=== PATIENT | female | born 1940 | race Caucasian/White ===

== ENCOUNTER 2017-05-24 09:34 | Inpatient (IN) | payer MEDICARE ==
[2017-05-24 10:05] LABS: Basophils % (Auto) 0.2 % (0.0-1.8); Eosinophils % (Auto) 0.2 % (0.0-4.3); Hematocrit 32.5 % (30.3-42.9); Hemoglobin 10.3 gm/dl (10.1-14.3); Mean Corpuscular HGB Conc 32 % (30-34); Mean Corpuscular Volume 79 fl (79-97); Platelet Count 268 K/mm3 (140-440); Red Blood Count 4.14 M/mm3 (3.65-5.03); White Blood Count 14.7 K/mm3 (4.5-11.0)
[2017-05-24 10:21] LABS: Mean Corpuscular Hemoglobin 25 pg (28-32)
[2017-05-24 10:31] LABS: Alanine Aminotransferase 19 units/L (7-56); Albumin 3.1 g/dL (3.9-5); Albumin/Globulin Ratio 0.8 %; Alkaline Phosphatase 97 units/L (35-129); Anion Gap 14 mmol/L; BUN/Creatinine Ratio 13.33; Blood Urea Nitrogen 8 mg/dL (7-17); Calcium 8.6 mg/dL (8.4-10.2); Carbon Dioxide 31 mmol/L (22-30); Chloride 93.9 mmol/L (98-107); Glucose 144 mg/dL (65-100); Lipase 32 units/L (13-60); Potassium 4.1 mmol/L (3.6-5.0); Sodium 135 mmol/L (137-145); Total Protein 6.8 g/dL (6.3-8.2)
[2017-05-24] MEDS ORDERED: NACL ONE (10:42)
[2017-05-24] MEDS ORDERED: NACL 0.9% 1000 ML 1,000 ML IV ONE (11:19)
[2017-05-24] MEDS ORDERED: ZOSYN/NS 4.5GM/100ML 4.5 GM/100 ML VIAL IV ONE (11:31)
--- NOTE | 2017-05-24 11:33 | Emergency Department Report ---
ED Abdominal Pain HPI - General Chief Complaint: Abdominal Pain Stated Complaint: ABD PAIN/DIZZINESS/FEVER/DIARRHEA Time Seen by Provider: 05/24/17 10:10 Source: patient, family Mode of arrival: Ambulatory Limitations: Language Barrier - History of Present Illness Initial Comments: 76-year-old female with a past medical history of asthma, hypertension and no previous abdominal surgeries presents to the hospital complaining of abdominal pain 1 week. Pain is primarily right lower quadrant that is intermittent. Unable to characterize pain. Pain rated 8/10 in intensity. Worse with palpation. Daughter who is a physician and is translating since the patient does not speak Ghanaian. Daughter states that patient is very stoic. Positive nausea without reports of vomiting. Decreased by mouth intake times one week. Patient has frequent loose stools. Temperature 100.8 at the physician's office prior to arrival. No recent travel or sick contacts. Patient was sent by PMD Dr. Rocio diallo - Related Data Home Medications Medication Instructions Recorded Confirmed Last Taken Cyanocobalamin [Vitamin B-12] 1,000 mcg PO DAILY 05/24/17 05/24/17 05/23/17 Fluticasone/Salmeterol [Advair 1 puff IH BID 05/24/17 05/24/17 05/23/17 Diskus 500-50 mcg] Losartan 100 mg PO DAILY 05/24/17 05/24/17 05/23/17 Montelukast [Singulair] 10 mg PO QPM 05/24/17 05/24/17 05/23/17 Allergies Allergy/AdvReac Type Severity Reaction Status Date / Time No Known Allergies Allergy Unverified 05/24/17 09:40 ED Review of Systems ROS: Stated complaint: ABD PAIN/DIZZINESS/FEVER/DIARRHEA Other details as noted in HPI Comment: All other systems reviewed and negative Other: Constitutional: as per hpi Eyes: No eye pain visual changes or discharge ENT: No ear pain or throat pain Neck: Denies pain Respiratory: Denies cough wheezing shortness of breath Cardiovascular: Denies chest pain, palpitations, syncope GI: As per HPI : Denies dysuria Musculoskeletal: Denies back pain Skin: Denies rash, lesions, erythema Neurologic: Denies headache, numbness, weakness Psychiatric: Denies suicidal ideation, hallucinations ED Past Medical Hx - Past Medical History Previous Medical History?: Yes Hx Hypertension: Yes Hx Asthma: Yes - Surgical History Past Surgical History?: Yes Additional Surgical History: catatracts - Social History Smoking Status: Never Smoker Substance Use Type: None - Medications Home Medications: Home Medications Medication Instructions Recorded Confirmed Last Taken Type Cyanocobalamin [Vitamin B-12] 1,000 mcg PO DAILY 05/24/17 05/24/17 05/23/17 History Fluticasone/Salmeterol [Advair 1 puff IH BID 05/24/17 05/24/17 05/23/17 History Diskus 500-50 mcg] Losartan 100 mg PO DAILY 05/24/17 05/24/17 05/23/17 History Montelukast [Singulair] 10 mg PO QPM 05/24/17 05/24/17 05/23/17 History ED Physical Exam - General Limitations: Language Barrier - Other Other exam information: General: No limitations, patient is alert in no acute distress Head exam: Atraumatic, normocephalic Eyes exam: Normal appearance ENT: Moist mucous membrane, normal oropharynx Neck exam: Normal inspection, full range of motion, no meningismus nontender Respiratory exam: Clear to auscultation bilateral, no wheezes, rales, crackles Cardiovascular: Normal rate and rhythm, normal heart sounds Abdomen: Abdomen is firm, distended, mild tenderness to the right mid lower abdomen. No rebound or guarding. Extremity: Full range of motion normal inspection no deformity Back: Normal Inspection, full range of motion, no tenderness Neurologic: Alert, oriented x3, cranial nerves intact, no motor or sensory deficit Psychiatric: normal affect, normal mood Skin: Warm, dry, intact ED Course Vital Signs 05/24/17 05/24/17 09:40 10:12 Temperature 99.4 F Pulse Rate 103 H Respiratory 24 16 Rate Blood Pressure 165/87 O2 Sat by Pulse 96 97 Oximetry - Reevaluation(s) Reevaluation #1: 05/24/17 11:41 1 L normal saline and Zosyn ordered - Consultations Consultation #1: 05/24/17 11:47 Dr Conroy consulted, will evaluate, requests IR consult Consultation #2: 05/24/17 11:51 Case D/w Dr Alan IR, will consult ED Medical Decision Making - Lab Data Result diagrams: 05/24/17 09:50 05/24/17 09:50 Lab Results 05/24/17 05/24/17 Range/Units 09:50 09:50 WBC 14.7 H (4.5-11.0) K/mm3 RBC 4.14 (3.65-5.03) M/mm3 Hgb 10.3 (10.1-14.3) gm/dl Hct 32.5 (30.3-42.9) % MCV 79 (79-97) fl MCH 25 L (28-32) pg MCHC 32 (30-34) % RDW 17.0 H (13.2-15.2) % Plt Count 268 (140-440) K/mm3 Lymph % (Auto) 7.7 L (13.4-35.0) % [place] % (Auto) 14.5 H (0.0-7.3) % Eos % (Auto) 0.2 (0.0-4.3) % Baso % (Auto) 0.2 (0.0-1.8) % Lymph # 1.1 L (1.2-5.4) K/mm3 [place] # 2.1 H (0.0-0.8) K/mm3 Eos # 0.0 (0.0-0.4) K/mm3 Baso # 0.0 (0.0-0.1) K/mm3 Seg Neutrophils % 77.4 H (40.0-70.0) % Seg Neutrophils # 11.4 H (1.8-7.7) K/mm3 Sodium 135 L (137-145) mmol/L Potassium 4.1 (3.6-5.0) mmol/L Chloride 93.9 L (98-107) mmol/L Carbon Dioxide 31 H (22-30) mmol/L Anion Gap 14 mmol/L BUN 8 (7-17) mg/dL Creatinine 0.6 L (0.7-1.2) mg/dL Estimated GFR > 60 ml/min BUN/Creatinine Ratio 13.33 % Glucose 144 H (65-100) mg/dL Calcium 8.6 (8.4-10.2) mg/dL Total Bilirubin 0.60 (0.1-1.2) mg/dL AST 17 (5-40) units/L ALT 19 (7-56) units/L Alkaline Phosphatase 97 (35-129) units/L Total Protein 6.8 (6.3-8.2) g/dL Albumin 3.1 L (3.9-5) g/dL Albumin/Globulin Ratio 0.8 % Lipase 32 (13-60) units/L - Radiology Data Radiology results: report reviewed CT abdomen and pelvis IV contrast: Mid to lower abdominal abscess from a possible occult bowel perforation. 7.5 x 7.8 cm in size. - Medical Decision Making UA pending at disposition. Patient requires admission to the hospital for IV antibiotics and surgical drainage of abscess. Surgery and interventional radiologist having consulted - Differential Diagnosis diverticulitis, appendicitis, gastroenteritis Critical Care Time: No Critical care attestation.: If time is entered above; I have spent that time in minutes in the direct care of this critically ill patient, excluding procedure time. ED Disposition Clinical Impression: Intra-abdominal abscess, HTN (hypertension), Asthma Disposition: OP ADMIT IP TO THIS HOSP Is pt being admited?: Yes Condition: Stable Time of Disposition: 11:59 (Dr Frazier/hosp)
--- NOTE | 2017-05-24 11:36 | Cat Scan Report ---
CT ABDOMEN AND PELVIS WITH CONTRAST INDICATION: Right abdominal pain, fever, nausea, vomiting. COMPARISON: None similar. FINDINGS: Abdomen and pelvis CT performed following intravenous administration of 100 cc of Omnipaque 300. LUNG BASES: Mild cardiomegaly. Right coronary calcifications. Nonspecific distal esophageal wall prominence/thickening, not excluded for gastroesophageal reflux and/or hiatal hernia, amongst others. ABDOMEN: Lower abdominal mesenteric stranding and few small surrounding likely reactive lymph nodes measuring up to 6 mm noted about a mid to lower abdominal abscess containing fluid and air and measuring 7.5 x 7.8 cm as on axial image 191, series 2 and approximately 6 m craniocaudal. It slightly displaces few bowel loops in this region that appear to drape over it. No significant free intraperitoneal air. Approximately 1.2 cm peripheral splenic hypodensity superiorly, axial image 70, series 2 and few other smaller subcentimeter, inadequately characterized. Liver, gallbladder, pancreas, adrenals, nonaneurysmal abdominal aorta with few atherosclerotic calcifications, IVC and kidneys within normal limits. No hydronephrosis or significant ascites. Nonopacified GI tract evaluation limited, though grossly nonobstructive. Small fat containing umbilical hernia with a transverse neck of 0.8 cm. PELVIS: Urinary bladder, uterus, adnexa/ovaries and rectosigmoid within normal limits. No free fluid or significant adenopathy. Multilevel imaged spinal degenerative changes, including spurring and multilevel lumbar disc degeneration/vacuum phenomena. Lower lumbar facet arthropathy as well. CONCLUSION: 1. Mid to lower abdominal abscess from a possible occult bowel perforation, as detailed above. 2. Few other incidental findings, as above. I phoned the above results to Dr. Justice in the ER, 11:20 AM, 05/24/2017. Thank you for the opportunity to participate in this patient's care.
--- NOTE | 2017-05-24 11:51 | Admit Criteria Form ---
Admission Criteria Documentation: ABDOMINAL PAIN Clinical Indications for Admission to Inpatient Care (Place 'X' for any and all applicable criteria): Admission is indicated for ANY ONE of the following(1)(2)(3)(4)(5): [X ]I. Inpatient admission required rather than observation care (Also use Abdominal Pain: Observation Care, as appropriate) because of ANY ONE of the following: [ ]a) Severe pain requiring acute inpatient management [ X]b) Identification of etiology/finding that requires inpatient care (eg, aortic dissection, free air) [ ]c) Absent bowel sounds with complete ileus(6) [ ]d) Suspected toxic megacolon [ ]e) Severe electrolyte abnormalities requiring inpatient care [ ]f) High fever or infection requiring inpatient admission as indicated by ANY ONE of following(7)(8): [ ] i) Appropriate outpatient or observational care antimicrobial treatment unavailable, not effective, or not feasible [ ] ii) Documented bacteremia [ ] iii) Temperature > 104.9 degrees F (oral) [ ] iv) T >103.1 F (oral) or < 96.8 F(rectal) that does not respond to all emergency treatment measures [ ]g) Signs of intestinal obstruction [B] [ ]h) Hemodynamic instability [ ]i) IV fluid to replace significant ongoing losses (greater than 3 L/m2 per day) (12)(13) [ ]j) Percutaneous or open drainage (eg, abscess, biliary tract ) procedures [ ]k) Parenteral nutrition regimen that must be implemented on inpatient basis [ ]l) Other condition,treatment or monitoring requiring inpatient admission. [ ]II. Peritoneal signs present [ ]III. Surgery needed that cannot be performed on an ambulatory basis. [ ]IV. Evaluation requires patient to not eat or drink for extended period ( eg, more than 24 hours). [ ]V. Contraindications and/or Inappropriate clinical situations for Observational Care in patients with abdominal pain, when ANY ONE of the following is required: [ ]a) Thorough evaluation is required to prevent catastrophic events due to delays in diagnosing (e.g.Mesenteric ischemia) 1,3 [ ]b) Patient with severe pathology or with chronic symptoms unlikely to improve in the ED stay (3) [X ]. General contraindications and/or Inappropriate clinical situations for Observational Care in patients with abdominal pain, when ANY ONE of the following is required: [X ]a) Prediction of prolongation of LOS based on ANY ONE of the following may be considered as a contraindication for observational care 2, 3, 4, 5, 6, 7, 8, 9, 10, 11 [X ]i) Age > 65 yrs. [ ]ii) Patient arriving by ambulance [ ]iii) Patient with high acuity [ ]iv) Patient requiring vital sign monitoring [ ]v) Patient on IV medication [ ]b) Systolic blood pressures 180mmHg 3,12 [ ]c) Patient with altered mental status including delirium and other alteration of consciousness, (3) [ ]d) Patient whose discharge disposition will be to a fpc home or rehabilitation home should not be managed in Emergency Department Observation Unit. CMS rule requires 3 days hospital stay before such placement.3,13 [ ]e) Patient with failure to thrive due to broad array of etiologies 3,16,17 [ ]f) Inability to ambulate 3,14 Extended stay beyond goal length of stay may be needed for(2)(3): [ ]a) Persistent abdominal pain with suspected intra-abdominal process [ ]b) Diagnosed condition requiring continued stay (e.g., pancreatitis, complicated diverticulitis) [ ]c) Surgery (e.g., colectomy) The original [facility] content created by [employer] has been revised. The portions of the content which have been revised are identified through the use of italic text or in bold, and [facility] has neither reviewed nor approved the modified material.All other unmodified content is copyright [facility]. Please see references footnoted in the original [facility] edition 2016 Admission Criteria Met: Yes
--- NOTE | 2017-05-24 12:19 | Consultation ---
History of Present Illness - Reason for Consult Consult date: 05/24/17 - History of Present Illness This is a 76 year old female presenting with six days of abdominal pain. She states that initially she began to experience central abdominal and RLQ pain. Eventually she developed fevers and chills. She had lack of appetite and runny stools during this time as well. Aside from cataracts there is no surgical history. She has asthma and hypertension. Medications and Allergies Allergies Allergy/AdvReac Type Severity Reaction Status Date / Time No Known Allergies Allergy Unverified 05/24/17 09:40 Home Medications Medication Instructions Recorded Confirmed Last Taken Type Cyanocobalamin [Vitamin B-12] 1,000 mcg PO DAILY 05/24/17 05/24/17 05/23/17 History Fluticasone/Salmeterol [Advair 1 puff IH BID 05/24/17 05/24/17 05/23/17 History Diskus 500-50 mcg] Losartan 100 mg PO DAILY 05/24/17 05/24/17 05/23/17 History Montelukast [Singulair] 10 mg PO QPM 05/24/17 05/24/17 05/23/17 History Active Meds: Active Medications Sodium Chloride (Nacl 0.9% 1000 Ml) 1,000 mls @ 999 mls/hr IV BOLUS ONE Stop: 05/24/17 12:19 Last Admin: 05/24/17 11:22 Dose: 999 mls/hr Exam - Constitutional Vitals: Temp Pulse Resp BP Pulse Ox 99.4 F 103 H 16 165/87 97 05/24/17 09:40 05/24/17 09:40 05/24/17 10:12 05/24/17 09:40 05/24/17 10:12 General appearance: Present: no acute distress, mild distress - EENT Eyes: Present: PERRL ENT: hearing intact - Respiratory Respiratory effort: normal - Abdominal General gastrointestinal: Present: tender, non-distended Localized gastrointestinal: tender: RLQ, epigastric periumbilical Results - Labs CBC & Chem 7: 05/24/17 09:50 05/24/17 09:50 Labs: Abnormal lab results 05/24/17 05/24/17 Range/Units 09:50 09:50 WBC 14.7 H (4.5-11.0) K/mm3 MCH 25 L (28-32) pg RDW 17.0 H (13.2-15.2) % Lymph % (Auto) 7.7 L (13.4-35.0) % [place] % (Auto) 14.5 H (0.0-7.3) % Lymph # 1.1 L (1.2-5.4) K/mm3 [place] # 2.1 H (0.0-0.8) K/mm3 Seg Neutrophils % 77.4 H (40.0-70.0) % Seg Neutrophils # 11.4 H (1.8-7.7) K/mm3 Sodium 135 L (137-145) mmol/L Chloride 93.9 L (98-107) mmol/L Carbon Dioxide 31 H (22-30) mmol/L Creatinine 0.6 L (0.7-1.2) mg/dL Glucose 144 H (65-100) mg/dL Albumin 3.1 L (3.9-5) g/dL Assessment and Plan CT reveals a large intraperitoneal abscess. The etiology is unclear. This may represent a perforated appendix or a jejunal diverticulum, amongst other possible etiologies. Review of the imaging reveals that the abscess is surrounded on all sides by bowel and there is no safe percutaneous window for drainange. I have discussed this all with the patient and her family. I would recommend a surgical evaluation for both evacuation of the abscess and finding the etiology. I spoke to Dr. Conroy who said he would evaluate the patient.
--- NOTE | 2017-05-24 12:44 | Event Note ---
Date: 05/24/17 After further discussion with surgical colleagues and the patient, I will attempt percutaneous drainage. I will first image her in different positions in CT. If I am unable to find a safe window, she will likely have to undergo surgical exploration.
--- NOTE | 2017-05-24 13:26 | History and Physical Report ---
History of Present Illness Chief complaint: My stomach hurts History of present illness: 76 YO Female with HTN, Asthma, Obesity presents to ED for evaluation. Pt states that she has been experiencing abdominal pain for the past week with worsening symptoms over the past 1 day. Pain is 8/10, intermittent, localized to the right lower quadrant Pain is worse with palpation, relieved with rest. Daughter who is a physician and is translating since the patient does not speak Setswana. Pt seen and evaluated in ED and found to have intraabdominal abscess of unclear etiology, contained perforation versus malignancy. IR consulted and surgery consulted in ED for evaluation. Past History Past Medical History: hypertension, other (asthma, obesity, ) Past Surgical History: cataract removal Social history: , lives with family. denies: smoking, alcohol abuse, prescription drug abuse, IV drug use Family history: hypertension Medications and Allergies Allergies Allergy/AdvReac Type Severity Reaction Status Date / Time No Known Allergies Allergy Unverified 05/24/17 09:40 Home Medications Medication Instructions Recorded Confirmed Last Taken Type Cyanocobalamin [Vitamin B-12] 1,000 mcg PO DAILY 05/24/17 05/24/17 05/23/17 History Fluticasone/Salmeterol [Advair 1 puff IH BID 05/24/17 05/24/17 05/23/17 History Diskus 500-50 mcg] Losartan 100 mg PO DAILY 05/24/17 05/24/17 05/23/17 History Montelukast [Singulair] 10 mg PO QPM 05/24/17 05/24/17 05/23/17 History Review of Systems All systems: negative Constitutional: no weight loss, no fever, no chills Ears, nose, mouth and throat: no ear pain Breasts: no swelling Cardiovascular: no chest pain Respiratory: no cough Gastrointestinal: abdominal pain, nausea Genitourinary Female: no flank pain Menstruation: no ammenorrhea Rectal: no pain Musculoskeletal: no neck stiffness Integumentary: no rash Neurological: no head injury Psychiatric: no anxiety Endocrine: no cold intolerance Hematologic/Lymphatic: no easy bruising, no easy bleeding Allergic/Immunologic: no urticaria Exam - Constitutional Vitals: Temp Pulse Resp BP Pulse Ox 99.4 F 95 H 22 143/70 95 05/24/17 09:40 05/24/17 13:16 05/24/17 13:16 05/24/17 13:16 05/24/17 13:16 General appearance: Present: mild distress - EENT Eyes: Present: PERRL ENT: hearing intact, clear oral mucosa - Neck Neck: Present: supple, normal ROM - Respiratory Respiratory effort: normal Respiratory: bilateral: CTA - Cardiovascular Heart Sounds: Present: S1 & S2. Absent: rub, click - Extremities Extremities: pulses symmetrical, No edema Peripheral Pulses: within normal limits - Abdominal General gastrointestinal: Present: soft, tender, non-distended, normal bowel sounds. Absent: hepatomegaly, splenomegaly, mass, hernia Female genitourinary: Present: normal - Integumentary Integumentary: Present: clear, warm, dry - Musculoskeletal Musculoskeletal: gait normal, strength equal bilaterally - Psychiatric Psychiatric: appropriate mood/affect, intact judgment & insight - Neurologic Neurologic: CNII-XII intact, moves all extremities Results - Labs CBC & Chem 7: 05/24/17 09:50 05/24/17 09:50 Labs: Abnormal lab results 05/24/17 05/24/17 Range/Units 09:50 09:50 WBC 14.7 H (4.5-11.0) K/mm3 MCH 25 L (28-32) pg RDW 17.0 H (13.2-15.2) % Lymph % (Auto) 7.7 L (13.4-35.0) % [place] % (Auto) 14.5 H (0.0-7.3) % Lymph # 1.1 L (1.2-5.4) K/mm3 [place] # 2.1 H (0.0-0.8) K/mm3 Seg Neutrophils % 77.4 H (40.0-70.0) % Seg Neutrophils # 11.4 H (1.8-7.7) K/mm3 Sodium 135 L (137-145) mmol/L Chloride 93.9 L (98-107) mmol/L Carbon Dioxide 31 H (22-30) mmol/L Creatinine 0.6 L (0.7-1.2) mg/dL Glucose 144 H (65-100) mg/dL Albumin 3.1 L (3.9-5) g/dL Assessment and Plan - Patient Problems (1) Intra-abdominal abscess Current Visit: Yes Status: Acute Plan to address problem: IV abx, IVF, surgery consulted, IR consulted, serial abdominal exam, supportive care. (2) Obesity (BMI 35.0-39.9 without comorbidity) Current Visit: Yes Status: Acute Plan to address problem: balanced diet, increased physical activity (3) Asthma Current Visit: Yes Status: Acute Qualifiers: Asthma severity: mild intermittent Asthma complication type: uncomplicated Qualified Code(s): J45.20 - Mild intermittent asthma, uncomplicated Plan to address problem: supportive care, nebulizer therapy, NIPPV as clinically indicated. (4) HTN (hypertension) Current Visit: Yes Status: Acute Qualifiers: Hypertension type: H Plan to address problem: monitor bp q shift, (5) DVT prophylaxis Current Visit: Yes Status: Acute
[2017-05-24] MEDS ORDERED: DULCOLAX PR PRN (13:42)
[2017-05-24] MEDS ORDERED: TYLENOL PO PRN (13:42)
[2017-05-24] MEDS ORDERED: DUONEB *Not for PRN Use IH (13:42)
[2017-05-24] MEDS ORDERED: ZOFRAN IV PRN (13:42)
[2017-05-24] MEDS ORDERED: MILK OF MAGNESIA PO PRN (13:42)
[2017-05-24] MEDS ORDERED: VERSED IV ONE ×3 (13:53→15:00)
[2017-05-24] MEDS ORDERED: SUBLIMAZE IV ONE (13:53)
[2017-05-24] MEDS ORDERED: SUBLIMAZE ONE (13:56)
[2017-05-24] MEDS ORDERED: NACL 0.9% 1000 ML 1,000 ML ONE (15:07)
--- NOTE | 2017-05-24 15:23 | Operative Report ---
Operative Report Operative Report: Procedure: CT guided placement of an intra-abdominal abscess drainage catheter Date of Procedure: 05/24/2017 History/Indication: 76-year-old female with 6 days of abdominal pain, fevers, nausea and vomiting. She came to the ER today, and CT revealed a large 7-8 cm intra-abdominal abscess. Physician: Malina Wilkerson MD Technique/Procedural Details: Informed consent was obtained. The patient was placed in the supine position on the procedure table. A marking grid was placed, and an appropriate location was marked after a test manager image. The patient was prepped and draped in the usual sterile fashion. A timeout was performed. Local and deep subcutaneous anesthesia was administered. Under sequential CT guidance, an 18-gauge trocar needle was placed into an intra-abdominal collection. Fluid was aspirated and sent for Gram stain and culture. A J-wire was advanced into the collection. Confirmation of placement was performed with another CT image. The trocar needle was exchanged for a 6 and 8 Georgian tissue dilator. A 10 Georgian all purpose drainage catheter was advanced into the collection. The locking loop was formed. Appropriate placement was confirmed by CT. Two 2-0 silk sutures were used to secure the catheter to the skin. An additional 40-50 mL of fluid was aspirated. Sterile dressings were placed, and the drain was connected to a Uracil drainage bag. The patient tolerated the procedure well, without immediate complication. Discussion: Abdominal CT reveals a large intraperitoneal fluid collection measuring 7-8 cm in diameter, with an air fluid level. There is successful placement of a 10 Georgian all-purpose drainage catheter, with the locking lid position within the center of the collection. Approximately 50 mL of foul-smelling purulent/ feculent fluid was promptly aspirated. Specimen: Abscess fluid EBL: <5 cc
[2017-05-24] MEDS: MORPHINE IV PRN (16:42)
[2017-05-24] MEDS ORDERED: DUONEB *Not for PRN Use IH ONE (16:51)
[2017-05-24] MEDS ORDERED: DUONEB *Not for PRN Use IH SCH (17:00)
[2017-05-24] MEDS ORDERED: PROVENTIL IH PRN (17:11)
[2017-05-24] MEDS ORDERED: ATIVAN IV ONE (17:15)
[2017-05-24 17:19] LABS: ISTAT Base Excess 5; ISTAT HCO3 30.4; ISTAT PCO2 56.8 (35-45); ISTAT PH 7.335 (7.35-7.45); ISTAT PO2 66 (80-105); ISTAT SO2 91; ISTAT TCO2 32
[2017-05-24] MEDS: SINGULAIR PO SCH (17:45)
[2017-05-24] MEDS: ZOSYN/NS 4.5GM/100ML 4.5 GM/100 ML VIAL IV SCH (18:09)
[2017-05-24] MEDS: D5/0.45NS 1,000 ML IV SCH (18:17)
--- NOTE | 2017-05-24 18:29 | Consultation ---
History of Present Illness - Reason for Consult Consult date: 05/24/17 Intra-Abdominal Abscess Requesting physician: SAGE TITUS - History of Present Illness Ms. Mendez is a 76-year-old woman who presented with 1 week of lower abdominal pain, worsening over this period. CT imaging of the abdomen/ pelvis showed a RLQ abscess with reactive lymphadenopathy. She was taken to the OR and underwent abscess drainage with several mLs of purulent fluid drained. She is now in the ICU and beginning empiric antibiotics. ID consultation is requested for further treatment recommendations. Past History Past Medical History: hypertension, other (asthma, obesity, ) Past Surgical History: cataract removal Social history: , lives with family. denies: smoking, alcohol abuse, prescription drug abuse, IV drug use Family history: hypertension Medications and Allergies Allergies Allergy/AdvReac Type Severity Reaction Status Date / Time No Known Allergies Allergy Unverified 05/24/17 09:40 Home Medications Medication Instructions Recorded Confirmed Last Taken Type Cyanocobalamin [Vitamin B-12] 1,000 mcg PO DAILY 05/24/17 05/24/17 05/23/17 History Fluticasone/Salmeterol [Advair 1 puff IH BID 05/24/17 05/24/17 05/23/17 History Diskus 500-50 mcg] Losartan 100 mg PO DAILY 05/24/17 05/24/17 05/23/17 History Montelukast [Singulair] 10 mg PO QPM 05/24/17 05/24/17 05/23/17 History Active Meds: Active Medications Acetaminophen (Tylenol) 650 mg PO Q4H PRN PRN Reason: Pain MILD(1-3)/Fever >100.5/SESAY Albuterol (Proventil) 2.5 mg IH Q4HRT PRN PRN Reason: Shortness Of Breath Arformoterol Tartrate (Brovana Nebu) 15 mcg IH Q12HRT J LUIS Bisacodyl (Dulcolax) 10 mg MO QDAY PRN PRN Reason: Constipation unrelieved by MOM Budesonide (Pulmicort) 1 mg IH Q12HRT J LUIS Cyanocobalamin (Vitamin B-12) 1,000 mcg PO DAILY J LUIS Dextrose/Sodium Chloride (D5/0.45ns) 1,000 mls @ 75 mls/hr IV DIRECT J LUIS Last Admin: 05/24/17 18:17 Dose: 75 mls/hr Metronidazole (Flagyl 500 Mg/100 Ml) 500 mg in 100 mls @ 100 mls/hr IV Q8HR [facility] Piperacillin Sod/Tazobactam Sod (Zosyn/Ns 4.5gm/100ml) 4.5 gm in 100 mls @ 200 mls/hr IV Q8HR J LUIS PRN Reason: Protocol Last Admin: 05/24/17 18:09 Dose: 200 mls/hr Losartan Potassium (Cozaar) 100 mg PO DAILY [facility] Magnesium Hydroxide (Milk Of Magnesia) 30 ml PO Q4H PRN PRN Reason: Constipation Methylprednisolone Sodium Succinate (Solu-Medrol) 60 mg IV Q8H [facility] Last Admin: 05/24/17 17:45 Dose: 60 mg Montelukast Sodium (Singulair) 10 mg PO QPM [facility] Last Admin: 05/24/17 17:45 Dose: 10 mg Morphine Sulfate (Morphine) 2 mg IV Q4H PRN PRN Reason: Pain, Moderate (4-6) Last Admin: 05/24/17 16:42 Dose: 2 mg Ondansetron HCl (Zofran) 4 mg IV Q8H PRN PRN Reason: N/V unrelieved by Reglan Review of Systems ROS unobtainable: due to mental status Physical Examination - Constitutional Vitals: Vital Signs Temp Pulse Resp BP Pulse Ox 99.4 F 108 H 28 H 157/63 96 05/24/17 09:40 05/24/17 17:06 05/24/17 17:06 05/24/17 15:24 05/24/17 17:21 General appearance: Present: well-nourished, other (acutely ill-appearing; niece at bedside) - EENT Eyes: Absent: scleral icterus - Respiratory Respiratory effort: other (venti mask) Respiratory: bilateral: CTA - Cardiovascular Rhythm: regular Heart Sounds: Present: S1 & S2 - Extremities Extremities: No edema - Abdominal General gastrointestinal: Present: soft, non-distended, other (percutaneous drain with foul-smelling, purulent drainage) - Integumentary Integumentary: Present: clear. Absent: jaundice - Neurologic Neurologic: moves all extremities Results - Labs CBC & Chem 7: 05/24/17 09:50 05/24/17 09:50 Labs: Abnormal lab results 05/24/17 Range/Units 17:08 POC ABG pH 7.335 L (7.35-7.45) POC ABG pCO2 56.8 H (35-45) POC ABG pO2 66 L (80-105) - Imaging and Cardiology CT scan - abdomen: report reviewed CT scan - pelvis: report reviewed Assessment and Plan - Patient Problems (1) Intra-abdominal abscess Current Visit: Yes Status: Acute Plan to address problem: 1. Adding agents for broadest coverage, including empiric antifungal coverage. 2. Await results of abscess drainage cultures. 3. Serial abdominal imaging is anticipated. Will follow output of drain.
[2017-05-24] MEDS ORDERED: VANCOMYCIN/NS 1 GM/250 ML 1 GM/250 ML BAG IV SCH (19:00)
[2017-05-24] MEDS ORDERED: VANCOMYCIN 1,500 MG in NACL 0.9% 500 ML 500 ML IV ONE (19:00)
[2017-05-24] MEDS: FLAGYL 500 MG/100 ML 500 MG/100 ML BAG IV SCH ×3 (19:58→22:00)
[2017-05-24] MEDS: PULMICORT IH SCH (20:07)
[2017-05-24] MEDS: BROVANA NEBU IH SCH (20:08)
[2017-05-24] MEDS ORDERED: NON-FORMULARY (Fluticasone/Salmeterol [Advair Diskus 500-50 Mcg] 1 PUFF) IH SCH (22:00)
[2017-05-25] MEDS: MORPHINE IV PRN ×2 (00:46→14:35)
[2017-05-25] MEDS: FLAGYL 500 MG/100 ML 500 MG/100 ML BAG IV SCH ×2 (01:05→05:00)
[2017-05-25] MEDS: ZOSYN/NS 4.5GM/100ML 4.5 GM/100 ML VIAL IV SCH ×4 (02:25→22:40)
[2017-05-25] MEDS: DIFLUCAN 200 ML IV SCH ×2 (03:08→22:41)
--- NOTE | 2017-05-25 04:51 | Consultation ---
HISTORY OF PRESENT ILLNESS: This patient was seen in the Emergency Room. She is a 76-year-old [place] lady. She came because of pain in the mid upper abdomen, nausea, but no vomiting. The patient was evaluated by our ER physician and a CT scan showed evidence of fairly good sized collection at the mid right upper abdomen, may be about 8-9 cm, with air fluid level in it. Her temperature was 99.4, her blood pressure was 143. The white count was 14.7, the sodium was 155, and albumin is 3.1. PHYSICAL EXAMINATION: GENERAL: At this point showed a well preserved morbidly obese [place] female. She is in no distress. She looked in pain to me. HEAD AND NECK: Negative. CHEST: Essentially clear. HEART: Sound normal. ABDOMEN: Protuberant, severe tenderness all through, and particularly in the mid epigastric area. EXTREMITIES: Showed no evidence of any edema. IMPRESSION AND PLAN: Epigastric pain with evidence of mass seen on the CAT scan with fluid collection and air in it. This has been going on for about a week now. I believe this needs to be removed surgically. I had Dr. Wilkerson to see the patient and see if this could be done percutaneously. Apparently, it was done a while ago and he was able to do draw greenish-yellowish foul smelling fluid. Cultures were taken. The patient was thus admitted for further evaluation and observation. The patient is on Zosyn at the present time 4.5 gram every 8 hours. I do not think anything surgically needs to be done on her. I did indicate to her granddaughter that if this did not work, we may need to do exploratory laparotomy on her. Apparently, Dr. Wilkerson took care of that problem, so now she is on Zosyn and Flagyl. JOB# [id number] JONY/ERMELINDA
[2017-05-25] MEDS: BROVANA NEBU IH SCH ×2 (08:57→21:34)
[2017-05-25] MEDS: PULMICORT IH SCH ×2 (08:57→21:35)
[2017-05-25] MEDS ORDERED: NON-FORMULARY (Losartan 100 MG) PO SCH (10:00)
--- NOTE | 2017-05-25 10:51 | XRay Report ---
KUB: Postoperative followup for abscess. There is a percutaneous pigtail drain in the lower mid abdomen entering from the right side. There is a mild ileus pattern. There is a contrast filled distended urinary bladder. No free air and no other significant findings. Portable chest: Postoperative evaluation. There is a generally coarse overall interstitial pattern throughout both lungs. There are no infiltrates and no vascular congestion. Heart is probably normal in size for positioning. No comparison. Impression: Probable mild chronic interstitial changes. No acute finding suspected.
[2017-05-25 12:00] LABS: INR 1.31 (0.87-1.13)
[2017-05-25] MEDS: COZAAR PO SCH (12:25)
[2017-05-25] MEDS: VITAMIN B-12 PO SCH (12:27)
--- NOTE | 2017-05-25 13:00 | Progress Note ---
Assessment and Plan - Patient Problems (1) Intra-abdominal abscess Current Visit: Yes Status: Acute Plan to address problem: 1. Polymicrobial growth as anticipated. 2. Continue current empiric regimen. Await further clinical and culture data to determine long-term regimen. Subjective Date of service: 05/25/17 Principal diagnosis: Intra-Abdominal Abscess Interval history: Remains afebrile in ICU. New epigastric discomfort. No other events. Objective - Constitutional Vitals: Vital Signs Temp Pulse Resp BP Pulse Ox 97.8 F 84 20 118/64 99 05/25/17 09:59 05/25/17 09:59 05/25/17 09:59 05/25/17 09:59 05/25/17 08:54 Temperature -Last 24 Hours Temperature 97.8 F Temperature 98.7 F General appearance: Present: no acute distress, well-nourished, other (awake) - EENT Eyes: no scleral icterus, no conjunctival injection ENT: thrush - Respiratory Respiratory effort: normal Respiratory: bilateral: CTA, negative: rales - Cardiovascular Rhythm: regular Heart Sounds: Present: S1 & S2 Extremities: No edema - Gastrointestinal General gastrointestinal: Present: soft, distended, hypoactive bowel sounds, other (feculent output from percutaneous drain, no blood) - Integumentary Integumentary: no jaundice, no rash - Neurologic Neurologic: no focal deficits - Labs CBC & Chem 7: 05/24/17 09:50 05/24/17 09:50 Labs: Abnormal lab results 05/24/17 05/25/17 Range/Units 17:08 11:29 PT 17.0 H (12.2-14.9) Sec. INR 1.31 H (0.87-1.13) POC ABG pH 7.335 L (7.35-7.45) POC ABG pCO2 56.8 H (35-45) POC ABG pO2 66 L (80-105) Microbiology 05/25/17 15:00 Abdomen Surgical Culture - Preliminary - Imaging and cardiology Chest x-ray: report reviewed Abdominal x-ray: report reviewed (pigtail drain seen, no free air, mild ileus)
--- NOTE | 2017-05-25 13:44 | Progress Note ---
Assessment and Plan Assessment and plan: 76-year-old woman with past medical history of hypertension and asthma and obesity who presented complaining of abdominal pain to right lower quadrants Intra-abdominal abscess/sepsos sp CT guided placement of an intra-abdominal abscess drainage catheter on 05/24 Continue present antibiotics, ID input appreciated Obesity (BMI 35.0-39.9 without comorbidity) balanced diet, increased physical activity Mild intermittent Asthma Not currently in exacerbation, stable HTN (hypertension) Continue medications DVT prophylaxis Lovenox Case was discussed with the patient and her family. Case was discussed with infectious disease medical record consultant History Interval history: Abdominal pain is much improved, denies fevers, has been walking around her room. She was able to eat, she feels better. Hospitalist Physical - Physical exam Narrative exam: General: Patient appears well in no distress HEENT: MMM, EOMI cardiac: S1-S2 heard lungs: clear to auscultation, abdomen: soft, right lower quadrant tenderness, drain seen at the right lower quadrant., nondistended bowel sounds positive extremities: no edema clubbing or cyanosis Skin: no rash or lesion Neuro: no focal deficit Psych: appropriate behavior and mood, cognition intact - Constitutional Vitals: Temp Pulse Resp BP Pulse Ox 97.8 F 84 20 118/64 99 05/25/17 09:59 05/25/17 09:59 05/25/17 09:59 05/25/17 09:59 05/25/17 08:54 General appearance: Present: well-nourished, other (acutely ill-appearing; niece at bedside) Results - Labs CBC & Chem 7: 05/24/17 09:50 05/24/17 09:50 Labs: Laboratory Last Values WBC 14.7 K/mm3 (4.5-11.0) H 05/24/17 09:50 RBC 4.14 M/mm3 (3.65-5.03) 05/24/17 09:50 Hgb 10.3 gm/dl (10.1-14.3) 05/24/17 09:50 Hct 32.5 % (30.3-42.9) 05/24/17 09:50 MCV 79 fl (79-97) 05/24/17 09:50 MCH 25 pg (28-32) L 05/24/17 09:50 MCHC 32 % (30-34) 05/24/17 09:50 RDW 17.0 % (13.2-15.2) H 05/24/17 09:50 Plt Count 268 K/mm3 (140-440) 05/24/17 09:50 Lymph % (Auto) 7.7 % (13.4-35.0) L 05/24/17 09:50 [place] % (Auto) 14.5 % (0.0-7.3) H 05/24/17 09:50 Eos % (Auto) 0.2 % (0.0-4.3) 05/24/17 09:50 Baso % (Auto) 0.2 % (0.0-1.8) 05/24/17 09:50 Lymph # 1.1 K/mm3 (1.2-5.4) L 05/24/17 09:50 [place] # 2.1 K/mm3 (0.0-0.8) H 05/24/17 09:50 Eos # 0.0 K/mm3 (0.0-0.4) 05/24/17 09:50 Baso # 0.0 K/mm3 (0.0-0.1) 05/24/17 09:50 Seg Neutrophils % 77.4 % (40.0-70.0) H 05/24/17 09:50 Seg Neutrophils # 11.4 K/mm3 (1.8-7.7) H 05/24/17 09:50 PT 17.0 Sec. (12.2-14.9) H 05/25/17 11:29 INR 1.31 (0.87-1.13) H 05/25/17 11:29 POC ABG pH 7.335 (7.35-7.45) L 05/24/17 17:08 POC ABG pCO2 56.8 (35-45) H 05/24/17 17:08 POC ABG pO2 66 (80-105) L 05/24/17 17:08 POC ABG HCO3 30.4 05/24/17 17:08 POC ABG Total CO2 32 05/24/17 17:08 POC ABG O2 Sat 91 05/24/17 17:08 POC ABG Base Excess 5 05/24/17 17:08 FiO2 32 % 05/24/17 17:08 Sodium 135 mmol/L (137-145) L 05/24/17 09:50 Potassium 4.1 mmol/L (3.6-5.0) 05/24/17 09:50 Chloride 93.9 mmol/L (98-107) L 05/24/17 09:50 Carbon Dioxide 31 mmol/L (22-30) H 05/24/17 09:50 Anion Gap 14 mmol/L 05/24/17 09:50 BUN 8 mg/dL (7-17) 05/24/17 09:50 Creatinine 0.6 mg/dL (0.7-1.2) L 05/24/17 09:50 Estimated GFR > 60 ml/min 05/24/17 09:50 BUN/Creatinine Ratio 13.33 % 05/24/17 09:50 Glucose 144 mg/dL (65-100) H 05/24/17 09:50 Calcium 8.6 mg/dL (8.4-10.2) 05/24/17 09:50 Total Bilirubin 0.60 mg/dL (0.1-1.2) 05/24/17 09:50 AST 17 units/L (5-40) 05/24/17 09:50 ALT 19 units/L (7-56) 05/24/17 09:50 Alkaline Phosphatase 97 units/L (35-129) 05/24/17 09:50 Total Protein 6.8 g/dL (6.3-8.2) 05/24/17 09:50 Albumin 3.1 g/dL (3.9-5) L 05/24/17 09:50 Albumin/Globulin Ratio 0.8 % 05/24/17 09:50 Lipase 32 units/L (13-60) 05/24/17 09:50
--- NOTE | 2017-05-25 14:29 | Event Note ---
Date: 05/25/17 Abscess drain putting out 50-70cc of purulent output over last shift. Continue to monitor output. Awaiting surgical evaluation and termite helper Abx recommendations.
--- NOTE | 2017-05-25 15:44 | Progress Note ---
Subjective Narrative: Feels OK co epigastric pain , no nausea no vomiting , drainage minimal , biliary like , no legs pain . will ambulate .will need F/U CT ,KUB and CXray OK .will F/U Prn , Objective Vital Signs - 12hr 05/25/17 05/25/17 05/25/17 08:54 09:24 09:59 Temperature 97.8 F Pulse Rate [ 81 81 Anterior Bilateral Throughout] Pulse Rate [ 84 Brachial] Respiratory 20 Rate Respiratory 20 26 H Rate [Anterior Bilateral Throughout] Blood Pressure 118/64 [Left Arm] O2 Sat by Pulse 99 Oximetry - Labs 05/24/17 09:50 05/24/17 09:50
[2017-05-25] MEDS ORDERED: HEPARIN SUB-Q SCH (22:00)
[2017-05-25] MEDS ORDERED: LOVENOX SUB-Q SCH (22:00)
[2017-05-25] MEDS: LOVENOX SUB-Q SCH (22:38)
[2017-05-25] MEDS: VANCOMYCIN 1,250 MG in NACL 0.9% 250ML 250 ML IV SCH (22:40)
[2017-05-25] MEDS: D5/0.45NS 1,000 ML IV SCH (22:42)
[2017-05-26] MEDS: ZOSYN/NS 4.5GM/100ML 4.5 GM/100 ML VIAL IV SCH ×2 (05:02→19:41)
--- NOTE | 2017-05-26 08:49 | Progress Note ---
Assessment and Plan - Patient Problems (1) Intra-abdominal abscess Current Visit: Yes Status: Acute Plan to address problem: 1. Continue broad antimicrobials for now pending further micro data. 2. Recommend repeat abdominal imaging to determine if there is a new or worsened collection. Subjective Date of service: 05/26/17 Principal diagnosis: Intra-Abdominal Abscess Interval history: Remains afebrile, hemodynamically stable. Brief desaturation yesterday. Objective - Constitutional Vitals: Vital Signs Temp Pulse Resp BP Pulse Ox 97.7 F 106 H 20 120/65 98 05/25/17 21:30 05/25/17 22:00 05/25/17 21:39 05/25/17 21:30 05/25/17 23:00 Temperature -Last 24 Hours Temperature 97.7 F Temperature 97.8 F General appearance: Present: no acute distress, other (brother at bedside) - EENT Eyes: no scleral icterus - Respiratory Respiratory: bilateral: CTA, negative: rales, rhonchi - Cardiovascular Rhythm: regular Heart Sounds: Present: S1 & S2 Extremities: No edema - Gastrointestinal General gastrointestinal: Present: soft, tender, distended, other (percutaneous drain with malodorous, purulent discharge) Localized gastrointestinal: tender: epigastric periumbilical - Integumentary Integumentary: clear, no jaundice, no rash - Neurologic Neurologic: no focal deficits, moves all extremities - Psychiatric Psychiatric: appropriate mood/affect - Labs CBC & Chem 7: 05/27/17 07:22 05/24/17 09:50 Labs: Abnormal lab results 05/25/17 Range/Units 11:29 PT 17.0 H (12.2-14.9) Sec. INR 1.31 H (0.87-1.13) Microbiology 05/25/17 15:00 Abdomen Surgical Culture - Preliminary
[2017-05-26] MEDS: PULMICORT IH SCH ×2 (09:22→20:44)
[2017-05-26] MEDS: BROVANA NEBU IH SCH ×2 (09:22→20:44)
[2017-05-26] MEDS ORDERED: PROVENTIL IH PRN (09:28)
--- NOTE | 2017-05-26 11:13 | Progress Note ---
Assessment and Plan Assessment and plan: 76-year-old woman with past medical history of hypertension and asthma and obesity who presented complaining of abdominal pain to right lower quadrants Intra-abdominal abscess/sepsis/Rupture Appendicitis Perforated viscus sp CT guided placement of an intra-abdominal abscess drainage catheter on 05/24 Continue present antibiotics, ID input appreciated repeat CT today shows Near complete resolution of appendiceal abscess, status post appendiceal rupture but no signs of peritonitis or additional abscess formation. Splenic hypodensities are stable and a likely benign Keep NPO will discuss possible advancement of diet with IR tomorrow Obesity (BMI 35.0-39.9 without comorbidity) balanced diet, increased physical activity Mild intermittent Asthma Not currently in exacerbation, stable HTN (hypertension) Continue medications DVT prophylaxis Lovenox Case was discussed with the patient and her family. Case was discussed with infectious disease safety and health consultant History Interval history: Abdominal pain is much improved, denies fevers, has been walking around her room. she wants to eat, she feels better. Hospitalist Physical - Physical exam Narrative exam: General: Patient appears well in no distress HEENT: MMM, EOMI cardiac: S1-S2 heard lungs: clear to auscultation, abdomen: soft, right lower quadrant tenderness, drain seen at the right lower quadrant., nondistended bowel sounds positive extremities: no edema clubbing or cyanosis Skin: no rash or lesion Neuro: no focal deficit Psych: appropriate behavior and mood, cognition intact - Constitutional Vitals: Temp Pulse Resp BP Pulse Ox 97.6 F 60 20 123/69 100 05/26/17 09:21 05/26/17 09:35 05/26/17 09:35 05/26/17 09:21 05/26/17 09:35 General appearance: Present: no acute distress, well-nourished, other (awake) Results - Labs CBC & Chem 7: 05/24/17 09:50 05/24/17 09:50 Labs: Laboratory Last Values WBC 14.7 K/mm3 (4.5-11.0) H 05/24/17 09:50 RBC 4.14 M/mm3 (3.65-5.03) 05/24/17 09:50 Hgb 10.3 gm/dl (10.1-14.3) 05/24/17 09:50 Hct 32.5 % (30.3-42.9) 05/24/17 09:50 MCV 79 fl (79-97) 05/24/17 09:50 MCH 25 pg (28-32) L 05/24/17 09:50 MCHC 32 % (30-34) 05/24/17 09:50 RDW 17.0 % (13.2-15.2) H 05/24/17 09:50 Plt Count 268 K/mm3 (140-440) 05/24/17 09:50 Lymph % (Auto) 7.7 % (13.4-35.0) L 05/24/17 09:50 [place] % (Auto) 14.5 % (0.0-7.3) H 05/24/17 09:50 Eos % (Auto) 0.2 % (0.0-4.3) 05/24/17 09:50 Baso % (Auto) 0.2 % (0.0-1.8) 05/24/17 09:50 Lymph # 1.1 K/mm3 (1.2-5.4) L 05/24/17 09:50 [place] # 2.1 K/mm3 (0.0-0.8) H 05/24/17 09:50 Eos # 0.0 K/mm3 (0.0-0.4) 05/24/17 09:50 Baso # 0.0 K/mm3 (0.0-0.1) 05/24/17 09:50 Seg Neutrophils % 77.4 % (40.0-70.0) H 05/24/17 09:50 Seg Neutrophils # 11.4 K/mm3 (1.8-7.7) H 05/24/17 09:50 PT 17.0 Sec. (12.2-14.9) H 05/25/17 11:29 INR 1.31 (0.87-1.13) H 05/25/17 11:29 POC ABG pH 7.335 (7.35-7.45) L 05/24/17 17:08 POC ABG pCO2 56.8 (35-45) H 05/24/17 17:08 POC ABG pO2 66 (80-105) L 05/24/17 17:08 POC ABG HCO3 30.4 05/24/17 17:08 POC ABG Total CO2 32 05/24/17 17:08 POC ABG O2 Sat 91 05/24/17 17:08 POC ABG Base Excess 5 05/24/17 17:08 FiO2 32 % 05/24/17 17:08 Sodium 135 mmol/L (137-145) L 05/24/17 09:50 Potassium 4.1 mmol/L (3.6-5.0) 05/24/17 09:50 Chloride 93.9 mmol/L (98-107) L 05/24/17 09:50 Carbon Dioxide 31 mmol/L (22-30) H 05/24/17 09:50 Anion Gap 14 mmol/L 05/24/17 09:50 BUN 8 mg/dL (7-17) 05/24/17 09:50 Creatinine 0.6 mg/dL (0.7-1.2) L 05/24/17 09:50 Estimated GFR > 60 ml/min 05/24/17 09:50 BUN/Creatinine Ratio 13.33 % 05/24/17 09:50 Glucose 144 mg/dL (65-100) H 05/24/17 09:50 Calcium 8.6 mg/dL (8.4-10.2) 05/24/17 09:50 Total Bilirubin 0.60 mg/dL (0.1-1.2) 05/24/17 09:50 AST 17 units/L (5-40) 05/24/17 09:50 ALT 19 units/L (7-56) 05/24/17 09:50 Alkaline Phosphatase 97 units/L (35-129) 05/24/17 09:50 Total Protein 6.8 g/dL (6.3-8.2) 05/24/17 09:50 Albumin 3.1 g/dL (3.9-5) L 05/24/17 09:50 Albumin/Globulin Ratio 0.8 % 05/24/17 09:50 Lipase 32 units/L (13-60) 05/24/17 09:50 - Imaging and Cardiology CT scan - abdomen: image reviewed (Near complete resolution of appendiceal abscess, status post appendiceal rupture but no signs of peritonitis or additional abscess formation. Splenic hypodensities are stable and a likely benign )
[2017-05-26] MEDS: COZAAR PO SCH (11:59)
[2017-05-26] MEDS: VITAMIN B-12 PO SCH (11:59)
--- NOTE | 2017-05-26 12:20 | Progress Note ---
Subjective Narrative: Looks and feelsmuch better pain less nno joseph , no vomiting , sitting on a chair will leave the rest for I radiology . Objective Vital Signs - 12hr 05/26/17 05/26/17 05/26/17 09:20 09:21 09:23 Temperature 97.6 F Pulse Rate Pulse Rate [ 64 Anterior Bilateral Throughout] Pulse Rate [ 67 Brachial] Respiratory 20 Rate Respiratory 20 Rate [Anterior Bilateral Throughout] Blood Pressure Blood Pressure 123/69 [Left Arm] O2 Sat by Pulse 99 Oximetry 05/26/17 05/26/17 05/26/17 09:26 09:35 11:59 Temperature Pulse Rate 76 Pulse Rate [ 60 Anterior Bilateral Throughout] Pulse Rate [ Brachial] Respiratory Rate Respiratory 20 Rate [Anterior Bilateral Throughout] Blood Pressure 123/69 Blood Pressure [Left Arm] O2 Sat by Pulse 100 100 Oximetry - Labs 05/24/17 09:50 05/24/17 09:50
--- NOTE | 2017-05-26 13:22 | XRay Report ---
KUB: 05/26/17 12:59 CLINICAL: Abdominal pain. FINDINGS: The stomach is moderately distended with air. Normal small and large bowel gas. No pneumoperitoneum. A right pigtail drainage catheter. No mass or suspicious calcifications. The bones and soft tissues are normal. IMPRESSION: Gastric distention but otherwise normal.
--- NOTE | 2017-05-26 13:24 | XRay Report ---
CHEST TWO VIEWS: 05/26/17 CLINICAL: Chest pain. COMPARISON: 05/25/17 FINDINGS: Stable cardiomegaly. Normal pulmonary vessels. The lungs are normally expanded and clear.The bones and soft tissues are unremarkable. IMPRESSION: Cardiomegaly but no CHF. No change.
--- NOTE | 2017-05-26 13:43 | Cat Scan Report ---
CT ABDOMEN AND PELVIS WITH CONTRAST: 05/26/17 CLINICAL: Followup after abscess drainage. COMPARISON: 05/24/17 TECHNIQUE: Volumetric acquisition and 1.25 millimeter scan reconstructions after the uneventful intravenous injection of or cc Omnipaque 300. Consent was obtained prior to the administration of contrast. Oral contrast was not given. FINDINGS: Abdomen: The previously described lower abdominal midline collection of fluid has resolved after placement of a right-sided pigtail drainage catheter. A few collections of air along with some retained bowel contrast is identified at the drainage tube and what appears to be an abnormal appendix with the ill-defined wall. Mild inflammatory stranding remains at the site. Mild ascites. No pneumoperitoneum. The large and small bowel are normal. The kidneys are normal with nondilated renal collecting systems and ureters. The adrenal glands are normal. Normal liver, bile ducts and gallbladder. Normal stomach, duodenum and pancreas. Splenic hypodensities are unchanged compared to the prior exam. The spleen is normal size. . Pelvis: A normal small uterus. Normal left ovary. A right ovary is not identified. Normal urinary bladder and rectum. Sigmoid colon is normal. Normal rectum and sigmoid colon. Bone windows demonstrate degenerative changes in the spine and no suspicious bone lesion. IMPRESSION:1. Near-complete resolution of appendiceal abscess. 2. Status post appendiceal rupture but no signs of peritonitis or additional abscess formation. 3. Splenic hypodensities are stable and are likely benign.
[2017-05-26] MEDS: SINGULAIR PO SCH ×2 (18:00→19:39)
[2017-05-26] MEDS: VANCOMYCIN 1,250 MG in NACL 0.9% 250ML 250 ML IV SCH (22:03)
[2017-05-26] MEDS: D5/0.45NS 1,000 ML IV SCH (22:04)
[2017-05-26] MEDS: LOVENOX SUB-Q SCH (22:04)
[2017-05-27] MEDS: DIFLUCAN 200 ML IV SCH ×2 (00:13→21:17)
[2017-05-27] MEDS: ZOSYN/NS 4.5GM/100ML 4.5 GM/100 ML VIAL IV SCH ×4 (02:29→23:55)
[2017-05-27 08:06] LABS: Hematocrit 36.3 % (30.3-42.9); Hemoglobin 11.2 gm/dl (10.1-14.3); Mean Corpuscular HGB Conc 31 % (30-34); Mean Corpuscular Volume 80 fl (79-97); Platelet Count 327 K/mm3 (140-440); Red Blood Count 4.56 M/mm3 (3.65-5.03); Red Cell Distribution Width 17.9 % (13.2-15.2); White Blood Count 10.8 K/mm3 (4.5-11.0)
[2017-05-27 08:08] LABS: Mean Corpuscular Hemoglobin 25 pg (28-32)
[2017-05-27] MEDS: BROVANA NEBU IH SCH ×2 (08:10→21:27)
[2017-05-27] MEDS: PULMICORT IH SCH ×2 (08:10→21:27)
[2017-05-27 08:55] LABS: Basophils % (Manual) 0 % (0.0-1.8); Blastocytes % (Manual) 0 %; Eosinophils % (Manual) 0 % (0.0-4.3)
[2017-05-27 08:56] LABS: Anisocytosis 1+; Diff Status Complete
[2017-05-27] MEDS: VITAMIN B-12 PO SCH (11:00)
[2017-05-27] MEDS: COZAAR PO SCH (11:01)
--- NOTE | 2017-05-27 11:38 | Progress Note ---
Assessment and Plan Assessment and plan: 76-year-old woman with past medical history of hypertension and asthma and obesity who presented complaining of abdominal pain to right lower quadrants Intra-abdominal abscess//Rupture Appendicitis Perforated viscus Peritonitis- resolving sp CT guided placement of an intra-abdominal abscess drainage catheter on 05/24 Continue present antibiotics, ID input appreciated repeat CT today shows Near complete resolution of appendiceal abscess, status post appendiceal rupture but no signs of peritonitis or additional abscess formation. Splenic hypodensities are stable and a likely benign Clear liquid diet for now, Will send for Upper GI small bowel follow through, and planned for drain check tomorrow will discuss possible advancement of diet with IR tomorrow Gram negative sepsis continue abx continue IVF intraop cx, growing gram neg rods Diarrhea send stool for c, diff Obesity (BMI 35.0-39.9 without comorbidity) balanced diet, increased physical activity Mild intermittent Asthma Not currently in exacerbation, stable HTN (hypertension) Continue medications DVT prophylaxis Lovenox Case was discussed with the patient and her family. Case was discussed with infectious disease customer consultant History Interval history: Abdominal pain is much improved, denies fevers, has been walking around her room. she wants to drink apple juice, she feels better. Hospitalist Physical - Physical exam Narrative exam: General: Patient appears well in no distress HEENT: MMM, EOMI cardiac: S1-S2 heard lungs: clear to auscultation, abdomen: soft, right lower quadrant tenderness, drain seen at the right lower quadrant., nondistended bowel sounds positive extremities: no edema clubbing or cyanosis Skin: no rash or lesion Neuro: no focal deficit Psych: appropriate behavior and mood, cognition intact - Constitutional Vitals: Temp Pulse Resp BP Pulse Ox 98.2 F 53 L 20 141/68 100 05/27/17 10:11 05/27/17 11:01 05/27/17 10:11 05/27/17 11:01 05/27/17 08:09 General appearance: Present: no acute distress, other (brother at bedside) Results - Labs CBC & Chem 7: 05/27/17 07:22 05/24/17 09:50 Labs: Laboratory Last Values WBC 10.8 K/mm3 (4.5-11.0) 05/27/17 07:22 RBC 4.56 M/mm3 (3.65-5.03) 05/27/17 07:22 Hgb 11.2 gm/dl (10.1-14.3) 05/27/17 07:22 Hct 36.3 % (30.3-42.9) 05/27/17 07:22 MCV 80 fl (79-97) 05/27/17 07:22 MCH 25 pg (28-32) L 05/27/17 07:22 MCHC 31 % (30-34) 05/27/17 07:22 RDW 17.9 % (13.2-15.2) H 05/27/17 07:22 Plt Count 327 K/mm3 (140-440) 05/27/17 07:22 Lymph % (Auto) 7.7 % (13.4-35.0) L 05/24/17 09:50 [place] % (Auto) 14.5 % (0.0-7.3) H 05/24/17 09:50 Eos % (Auto) 0.2 % (0.0-4.3) 05/24/17 09:50 Baso % (Auto) 0.2 % (0.0-1.8) 05/24/17 09:50 Lymph # 1.1 K/mm3 (1.2-5.4) L 05/24/17 09:50 [place] # 2.1 K/mm3 (0.0-0.8) H 05/24/17 09:50 Eos # 0.0 K/mm3 (0.0-0.4) 05/24/17 09:50 Baso # 0.0 K/mm3 (0.0-0.1) 05/24/17 09:50 Add Manual Diff Complete 05/27/17 07:22 Total Counted 100 05/27/17 07:22 Seg Neutrophils % Cleaning Porter 05/27/17 07:22 Seg Neuts % (Manual) 96.0 % (40.0-70.0) H 05/27/17 07:22 Band Neutrophils % 0 % 05/27/17 07:22 Lymphocytes % (Manual) 3.0 % (13.4-35.0) L 05/27/17 07:22 Reactive Lymphs % (Man) 0 % 05/27/17 07:22 Monocytes % (Manual) 1.0 % (0.0-7.3) 05/27/17 07:22 Eosinophils % (Manual) 0 % (0.0-4.3) 05/27/17 07:22 Basophils % (Manual) 0 % (0.0-1.8) 05/27/17 07:22 Metamyelocytes % 0 % 05/27/17 07:22 Myelocytes % 0 % 05/27/17 07:22 Promyelocytes % 0 % 05/27/17 07:22 Blast Cells % 0 % 05/27/17 07:22 Nucleated RBC % Not Reportable 05/27/17 07:22 Seg Neutrophils # 11.4 K/mm3 (1.8-7.7) H 05/24/17 09:50 Seg Neutrophils # Man 10.4 K/mm3 (1.8-7.7) H 05/27/17 07:22 Band Neutrophils # 0.0 K/mm3 05/27/17 07:22 Lymphocytes # (Manual) 0.3 K/mm3 (1.2-5.4) L 05/27/17 07:22 Abs React Lymphs (Man) 0.0 K/mm3 05/27/17 07:22 Monocytes # (Manual) 0.1 K/mm3 (0.0-0.8) 05/27/17 07:22 Eosinophils # (Manual) 0.0 K/mm3 (0.0-0.4) 05/27/17 07:22 Basophils # (Manual) 0.0 K/mm3 (0.0-0.1) 05/27/17 07:22 Metamyelocytes # 0.0 K/mm3 05/27/17 07:22 Myelocytes # 0.0 K/mm3 05/27/17 07:22 Promyelocytes # 0.0 K/mm3 05/27/17 07:22 Blast Cells # 0.0 K/mm3 05/27/17 07:22 WBC Morphology Not Reportable 05/27/17 07:22 Hypersegmented Neuts Not Reportable 05/27/17 07:22 Hyposegmented Neuts Not Reportable 05/27/17 07:22 Hypogranular Neuts Not Reportable 05/27/17 07:22 Smudge Cells Not Reportable 05/27/17 07:22 Toxic Granulation Not Reportable 05/27/17 07:22 Toxic Vacuolation Not Reportable 05/27/17 07:22 Dohle Bodies Not Reportable 05/27/17 07:22 Pelger-Huet Anomaly Not Reportable 05/27/17 07:22 Otilia Rods Not Reportable 05/27/17 07:22 Platelet Estimate Appears normal 05/27/17 07:22 Clumped Platelets Not Reportable 05/27/17 07:22 Plt Clumps, EDTA Not Reportable 05/27/17 07:22 Large Platelets Not Reportable 05/27/17 07:22 Giant Platelets Not Reportable 05/27/17 07:22 Platelet Satelliting Not Reportable 05/27/17 07:22 Plt Morphology Comment Not Reportable 05/27/17 07:22 RBC Morphology Not Reportable 05/27/17 07:22 Dimorphic RBCs Not Reportable 05/27/17 07:22 Polychromasia Not Reportable 05/27/17 07:22 Hypochromasia Not Reportable 05/27/17 07:22 Poikilocytosis Not Reportable 05/27/17 07:22 Anisocytosis 1+ 05/27/17 07:22 Microcytosis Not Reportable 05/27/17 07:22 Macrocytosis Not Reportable 05/27/17 07:22 Spherocytes Not Reportable 05/27/17 07:22 Pappenheimer Bodies Not Reportable 05/27/17 07:22 Sickle Cells Not Reportable 05/27/17 07:22 Target Cells Not Reportable 05/27/17 07:22 Tear Drop Cells Not Reportable 05/27/17 07:22 Ovalocytes Not Reportable 05/27/17 07:22 Helmet Cells Not Reportable 05/27/17 07:22 Car-[place] Bodies Not Reportable 05/27/17 07:22 [place] Rings Not Reportable 05/27/17 07:22 Rebecca Cells Not Reportable 05/27/17 07:22 Bite Cells Not Reportable 05/27/17 07:22 Crenated Cell Not Reportable 05/27/17 07:22 Elliptocytes Not Reportable 05/27/17 07:22 Acanthocytes (Spur) Not Reportable 05/27/17 07:22 Rouleaux Not Reportable 05/27/17 07:22 Hemoglobin C Crystals Not Reportable 05/27/17 07:22 Schistocytes Not Reportable 05/27/17 07:22 Malaria parasites Not Reportable 05/27/17 07:22 Yogi Bodies Not Reportable 05/27/17 07:22 Hem Pathologist Commnt No 05/27/17 07:22 PT 17.0 Sec. (12.2-14.9) H 05/25/17 11:29 INR 1.31 (0.87-1.13) H 05/25/17 11:29 POC ABG pH 7.335 (7.35-7.45) L 05/24/17 17:08 POC ABG pCO2 56.8 (35-45) H 05/24/17 17:08 POC ABG pO2 66 (80-105) L 05/24/17 17:08 POC ABG HCO3 30.4 05/24/17 17:08 POC ABG Total CO2 32 05/24/17 17:08 POC ABG O2 Sat 91 05/24/17 17:08 POC ABG Base Excess 5 05/24/17 17:08 FiO2 32 % 05/24/17 17:08 Sodium 135 mmol/L (137-145) L 05/24/17 09:50 Potassium 4.1 mmol/L (3.6-5.0) 05/24/17 09:50 Chloride 93.9 mmol/L (98-107) L 05/24/17 09:50 Carbon Dioxide 31 mmol/L (22-30) H 05/24/17 09:50 Anion Gap 14 mmol/L 05/24/17 09:50 BUN 8 mg/dL (7-17) 05/24/17 09:50 Creatinine 0.6 mg/dL (0.7-1.2) L 05/24/17 09:50 Estimated GFR > 60 ml/min 05/24/17 09:50 BUN/Creatinine Ratio 13.33 % 05/24/17 09:50 Glucose 144 mg/dL (65-100) H 05/24/17 09:50 Calcium 8.6 mg/dL (8.4-10.2) 05/24/17 09:50 Total Bilirubin 0.60 mg/dL (0.1-1.2) 05/24/17 09:50 AST 17 units/L (5-40) 05/24/17 09:50 ALT 19 units/L (7-56) 05/24/17 09:50 Alkaline Phosphatase 97 units/L (35-129) 05/24/17 09:50 Total Protein 6.8 g/dL (6.3-8.2) 05/24/17 09:50 Albumin 3.1 g/dL (3.9-5) L 05/24/17 09:50 Albumin/Globulin Ratio 0.8 % 05/24/17 09:50 Lipase 32 units/L (13-60) 05/24/17 09:50
--- NOTE | 2017-05-27 15:32 | Progress Note ---
Subjective Patient Reports: Positive: feels better, pain is less, flatus, bowel movement Narrative: feels much better . ambulatory , resolution of colllection , will await removal of catheter , Objective Vital Signs - 12hr 05/27/17 05/27/17 05/27/17 08:00 08:09 08:22 Temperature Pulse Rate Pulse Rate [ 57 L 59 L Anterior Bilateral Throughout] Pulse Rate [ Brachial] Respiratory Rate Respiratory 16 16 Rate [Anterior Bilateral Throughout] Blood Pressure Blood Pressure [Left Arm] O2 Sat by Pulse 100 Oximetry 05/27/17 05/27/17 10:11 11:01 Temperature 98.2 F Pulse Rate 53 L Pulse Rate [ Anterior Bilateral Throughout] Pulse Rate [ 53 L Brachial] Respiratory 20 Rate Respiratory Rate [Anterior Bilateral Throughout] Blood Pressure 141/68 Blood Pressure 141/68 [Left Arm] O2 Sat by Pulse Oximetry - Labs 05/27/17 07:22 05/24/17 09:50
[2017-05-27] MEDS: SINGULAIR PO SCH (17:53)
[2017-05-27] MEDS: VANCOMYCIN 1,250 MG in NACL 0.9% 250ML 250 ML IV SCH (19:10)
[2017-05-27] MEDS: LOVENOX SUB-Q SCH (21:24)
[2017-05-28] MEDS: D5/0.45NS 1,000 ML IV SCH (03:20)
[2017-05-28 04:56] LABS: Hematocrit 34.2 % (30.3-42.9); Hemoglobin 10.6 gm/dl (10.1-14.3); Mean Corpuscular HGB Conc 31 % (30-34); Mean Corpuscular Volume 79 fl (79-97); Platelet Count 305 K/mm3 (140-440); Red Blood Count 4.31 M/mm3 (3.65-5.03); Red Cell Distribution Width 17.4 % (13.2-15.2); White Blood Count 5.9 K/mm3 (4.5-11.0)
[2017-05-28 05:00] LABS: Mean Corpuscular Hemoglobin 25 pg (28-32)
[2017-05-28 05:14] LABS: Anion Gap 15 mmol/L; BUN/Creatinine Ratio 46.25; Blood Urea Nitrogen 37 mg/dL (7-17); Calcium 8.1 mg/dL (8.4-10.2); Carbon Dioxide 28 mmol/L (22-30); Chloride 98.4 mmol/L (98-107); Glucose 226 mg/dL (65-100); Potassium 4.3 mmol/L (3.6-5.0); Sodium 137 mmol/L (137-145)
[2017-05-28 05:44] LABS: Anisocytosis 1+; Basophils % (Manual) 0 % (0.0-1.8); Blastocytes % (Manual) 0 %; Diff Status Complete; Eosinophils % (Manual) 0 % (0.0-4.3); Hypochromasia 1+; Platelet Estimate Consistent w Auto
[2017-05-28] MEDS: ZOSYN/NS 4.5GM/100ML 4.5 GM/100 ML VIAL IV SCH (05:50)
[2017-05-28] MEDS: BROVANA NEBU IH SCH ×3 (08:21→19:40)
[2017-05-28] MEDS: PULMICORT IH SCH ×3 (08:21→19:40)
--- NOTE | 2017-05-28 09:42 | Progress Note ---
Assessment and Plan - Patient Problems (1) Intra-abdominal abscess Current Visit: Yes Status: Acute Plan to address problem: 1. Predominant growth of an ESBL(+) E coli. Changing Zosyn to Meropenem. Anticipated Ertapenem as as outpatient. 2. Keep Vancomycin and Fluconazole for now. 3. Will request repeat abdominal imaging to monitor progression of collection. Duration of therapy to be based on repeat CT findings. 4. Requesting midline placement for home infusion of antibiotics. Anticipate Ertapenem 1g IV q24h through ~ June 12, 2017. This stop may need to be extended based on CT findings. 5. I discussed the case and updates with the patient's niece via telephone. Patient's niece has asked that home health/ infusion be arranged at her home. Subjective Date of service: 05/28/17 Principal diagnosis: Intra-Abdominal Abscess Interval history: Remains afebrile. No new complaints. Objective - Constitutional Vitals: Vital Signs Temp Pulse Resp BP Pulse Ox 97.4 F L 64 16 148/73 98 05/27/17 20:20 05/27/17 22:00 05/27/17 22:00 05/27/17 20:20 05/27/17 21:39 Temperature -Last 24 Hours Temperature 97.4 F Temperature 98.2 F General appearance: Present: no acute distress, well-nourished, other (sitting up in chair at bedside, brother present) - EENT Eyes: no scleral icterus - Respiratory Respiratory: bilateral: CTA, negative: rales - Cardiovascular Rhythm: regular Heart Sounds: Present: S1 & S2 Extremities: No edema - Gastrointestinal General gastrointestinal: Present: soft, tender, distended (mildly with drain at RLQ containing malodorous, purulent fluid) - Integumentary Integumentary: clear, no jaundice - Neurologic Neurologic: no focal deficits, moves all extremities - Psychiatric Psychiatric: appropriate mood/affect - Labs CBC & Chem 7: 05/28/17 04:36 05/28/17 04:36 Labs: Abnormal lab results 05/28/17 05/28/17 Range/Units 04:36 04:36 MCH 25 L (28-32) pg RDW 17.4 H (13.2-15.2) % Seg Neuts % (Manual) 87.0 H (40.0-70.0) % Lymphocytes % (Manual) 5.0 L (13.4-35.0) % Lymphocytes # (Manual) 0.3 L (1.2-5.4) K/mm3 BUN 37 H (7-17) mg/dL Glucose 226 H (65-100) mg/dL Calcium 8.1 L (8.4-10.2) mg/dL Magnesium 2.50 H (1.7-2.3) mg/dL Microbiology 05/25/17 15:00 Abdomen Surgical Culture - Preliminary Escherichia Coli (ESBL) Gram Negative Cornelius - Imaging and cardiology CT scan - abdomen: pending CT scan - pelvis: pending
[2017-05-28] MEDS: VITAMIN B-12 PO SCH (10:30)
[2017-05-28] MEDS: COZAAR PO SCH (10:30)
--- NOTE | 2017-05-28 10:42 | Fluoroscopy Report ---
Small bowel series: Ruptured appendix with draining abscess. Water-soluble contrast was administered orally. There was rapid transit through the small bowel reaching the colon in 30 minutes. Minimal dilatation of distal small bowel loops identified. No abnormal collections. No mass effect. Impression: No significant findings.
[2017-05-28] MEDS: MERREM 1,000 MG in NACL 0.9% 100 ML IV SCH ×2 (13:34→18:04)
--- NOTE | 2017-05-28 14:02 | Progress Note ---
Subjective Patient Reports: Positive: no new complaints, feels better, flatus, bowel movement Narrative: feels and looks much better SBS wnl styarted on liq Home in AM ? Objective Vital Signs - 12hr 05/28/17 05/28/17 05/28/17 10:30 10:52 10:54 Pulse Rate 58 L Pulse Rate [ 75 Anterior Bilateral Throughout] Respiratory 15 Rate [Anterior Bilateral Throughout] Blood Pressure 153/69 O2 Sat by Pulse 96 Oximetry 05/28/17 11:01 Pulse Rate Pulse Rate [ 82 Anterior Bilateral Throughout] Respiratory 16 Rate [Anterior Bilateral Throughout] Blood Pressure O2 Sat by Pulse Oximetry - Labs 05/28/17 04:36 05/28/17 04:36 Diabetes panel 05/28/17 Range/Units 04:36 Sodium 137 (137-145) mmol/L Potassium 4.3 (3.6-5.0) mmol/L Chloride 98.4 (98-107) mmol/L Carbon Dioxide 28 (22-30) mmol/L BUN 37 H (7-17) mg/dL Creatinine 0.8 (0.7-1.2) mg/dL Glucose 226 H (65-100) mg/dL Calcium 8.1 L (8.4-10.2) mg/dL Calcium panel 05/28/17 Range/Units 04:36 Calcium 8.1 L (8.4-10.2) mg/dL Phosphorus 4.10 (2.5-4.5) mg/dL Pituitary panel 05/28/17 Range/Units 04:36 Sodium 137 (137-145) mmol/L Potassium 4.3 (3.6-5.0) mmol/L Chloride 98.4 (98-107) mmol/L Carbon Dioxide 28 (22-30) mmol/L BUN 37 H (7-17) mg/dL Creatinine 0.8 (0.7-1.2) mg/dL Glucose 226 H (65-100) mg/dL Calcium 8.1 L (8.4-10.2) mg/dL Adrenal panel 05/28/17 Range/Units 04:36 Sodium 137 (137-145) mmol/L Potassium 4.3 (3.6-5.0) mmol/L Chloride 98.4 (98-107) mmol/L Carbon Dioxide 28 (22-30) mmol/L BUN 37 H (7-17) mg/dL Creatinine 0.8 (0.7-1.2) mg/dL Glucose 226 H (65-100) mg/dL Calcium 8.1 L (8.4-10.2) mg/dL
--- NOTE | 2017-05-28 14:27 | Progress Note ---
Assessment and Plan - Patient Problems (1) Asthma Current Visit: Yes Status: Acute Qualifiers: Asthma severity: mild intermittent Asthma complication type: uncomplicated Qualified Code(s): J45.20 - Mild intermittent asthma, uncomplicated Plan to address problem: Present resolves continue when necessary nebulizer treatment. (2) HTN (hypertension) Current Visit: Yes Status: Acute Qualifiers: Hypertension type: H Plan to address problem: There will control continue present medical management. Losartan (3) Intra-abdominal abscess Current Visit: Yes Status: Acute Plan to address problem: Intra-abdominal abscess. Gram-negative bacteria with peritonitis. Peritonitis has resolved. Initial etiology was ruptured appendix. Patient had drain placed on 05/24. He is to have slowed down significantly. Gram-negative bacteria was out to be ESBL Zosyn was recently changed by ID to meropenem. Plan for discharge Ertapnem lead being set up for IV antibodies at home. Home infusion. (4) Obesity (BMI 35.0-39.9 without comorbidity) Current Visit: Yes Status: Acute Plan to address problem: Patient should continue to lose weight with current diet. History Interval history: No new concerns over p.m. Patient was able to tolerate clear liquid diet. Was on this at home. Hospitalist Physical - Constitutional Vitals: Temp Pulse Resp BP Pulse Ox 97.4 F L 82 16 153/69 96 05/27/17 20:20 05/28/17 11:01 05/28/17 11:01 05/28/17 10:30 05/28/17 10:54 General appearance: Present: no acute distress, other (brother at bedside) - EENT Eyes: Present: PERRL, EOM intact ENT: hearing intact, clear oral mucosa, dentition normal - Neck Neck: Present: supple, normal ROM - Respiratory Respiratory effort: normal Respiratory: right: CTA, bilateral: rhonchi (U rhonchi bilaterally basis) - Cardiovascular Rhythm: irregularly irregular - Extremities Extremities: pulses intact, pulses symmetrical, No edema, normal temperature, normal color - Abdominal General gastrointestinal: soft, tender, hypoactive bowel sounds, other (mild tenderness with palpation.) - Integumentary Integumentary: Present: clear, warm, dry - Psychiatric Psychiatric: appropriate mood/affect, cooperative - Neurologic Neurologic: CNII-XII intact, focal deficits Results - Labs CBC & Chem 7: 05/28/17 04:36 05/28/17 04:36 Labs: Laboratory Last Values WBC 5.9 K/mm3 (4.5-11.0) 05/28/17 04:36 RBC 4.31 M/mm3 (3.65-5.03) 05/28/17 04:36 Hgb 10.6 gm/dl (10.1-14.3) 05/28/17 04:36 Hct 34.2 % (30.3-42.9) 05/28/17 04:36 MCV 79 fl (79-97) 05/28/17 04:36 MCH 25 pg (28-32) L 05/28/17 04:36 MCHC 31 % (30-34) 05/28/17 04:36 RDW 17.4 % (13.2-15.2) H 05/28/17 04:36 Plt Count 305 K/mm3 (140-440) 05/28/17 04:36 Lymph % (Auto) 7.7 % (13.4-35.0) L 05/24/17 09:50 [place] % (Auto) 14.5 % (0.0-7.3) H 05/24/17 09:50 Eos % (Auto) 0.2 % (0.0-4.3) 05/24/17 09:50 Baso % (Auto) 0.2 % (0.0-1.8) 05/24/17 09:50 Lymph # 1.1 K/mm3 (1.2-5.4) L 05/24/17 09:50 [place] # 2.1 K/mm3 (0.0-0.8) H 05/24/17 09:50 Eos # 0.0 K/mm3 (0.0-0.4) 05/24/17 09:50 Baso # 0.0 K/mm3 (0.0-0.1) 05/24/17 09:50 Add Manual Diff Complete 05/28/17 04:36 Total Counted 100 05/28/17 04:36 Seg Neutrophils % Intellectual Property Manager 05/28/17 04:36 Seg Neuts % (Manual) 87.0 % (40.0-70.0) H 05/28/17 04:36 Band Neutrophils % 6.0 % 05/28/17 04:36 Lymphocytes % (Manual) 5.0 % (13.4-35.0) L 05/28/17 04:36 Reactive Lymphs % (Man) 0 % 05/28/17 04:36 Monocytes % (Manual) 2.0 % (0.0-7.3) 05/28/17 04:36 Eosinophils % (Manual) 0 % (0.0-4.3) 05/28/17 04:36 Basophils % (Manual) 0 % (0.0-1.8) 05/28/17 04:36 Metamyelocytes % 0 % 05/28/17 04:36 Myelocytes % 0 % 05/28/17 04:36 Promyelocytes % 0 % 05/28/17 04:36 Blast Cells % 0 % 05/28/17 04:36 Nucleated RBC % Not Reportable 05/28/17 04:36 Seg Neutrophils # 11.4 K/mm3 (1.8-7.7) H 05/24/17 09:50 Seg Neutrophils # Man 5.1 K/mm3 (1.8-7.7) 05/28/17 04:36 Band Neutrophils # 0.4 K/mm3 05/28/17 04:36 Lymphocytes # (Manual) 0.3 K/mm3 (1.2-5.4) L 05/28/17 04:36 Abs React Lymphs (Man) 0.0 K/mm3 05/28/17 04:36 Monocytes # (Manual) 0.1 K/mm3 (0.0-0.8) 05/28/17 04:36 Eosinophils # (Manual) 0.0 K/mm3 (0.0-0.4) 05/28/17 04:36 Basophils # (Manual) 0.0 K/mm3 (0.0-0.1) 05/28/17 04:36 Metamyelocytes # 0.0 K/mm3 05/28/17 04:36 Myelocytes # 0.0 K/mm3 05/28/17 04:36 Promyelocytes # 0.0 K/mm3 05/28/17 04:36 Blast Cells # 0.0 K/mm3 05/28/17 04:36 WBC Morphology Not Reportable 05/28/17 04:36 Hypersegmented Neuts Not Reportable 05/28/17 04:36 Hyposegmented Neuts Not Reportable 05/28/17 04:36 Hypogranular Neuts Not Reportable 05/28/17 04:36 Smudge Cells Not Reportable 05/28/17 04:36 Toxic Granulation Not Reportable 05/28/17 04:36 Toxic Vacuolation Not Reportable 05/28/17 04:36 Dohle Bodies Not Reportable 05/28/17 04:36 Pelger-Huet Anomaly Not Reportable 05/28/17 04:36 Otilia Rods Not Reportable 05/28/17 04:36 Platelet Estimate Consistent w auto 05/28/17 04:36 Clumped Platelets Not Reportable 05/28/17 04:36 Plt Clumps, EDTA Not Reportable 05/28/17 04:36 Large Platelets Not Reportable 05/28/17 04:36 Giant Platelets Not Reportable 05/28/17 04:36 Platelet Satelliting Not Reportable 05/28/17 04:36 Plt Morphology Comment Not Reportable 05/28/17 04:36 RBC Morphology Not Reportable 05/28/17 04:36 Dimorphic RBCs Not Reportable 05/28/17 04:36 Polychromasia Not Reportable 05/28/17 04:36 Hypochromasia 1+ 05/28/17 04:36 Poikilocytosis Not Reportable 05/28/17 04:36 Anisocytosis 1+ 05/28/17 04:36 Microcytosis Not Reportable 05/28/17 04:36 Macrocytosis Not Reportable 05/28/17 04:36 Spherocytes Not Reportable 05/28/17 04:36 Pappenheimer Bodies Not Reportable 05/28/17 04:36 Sickle Cells Not Reportable 05/28/17 04:36 Target Cells Not Reportable 05/28/17 04:36 Tear Drop Cells Not Reportable 05/28/17 04:36 Ovalocytes Not Reportable 05/28/17 04:36 Helmet Cells Not Reportable 05/28/17 04:36 Car-[place] Bodies Not Reportable 05/28/17 04:36 [place] Rings Not Reportable 05/28/17 04:36 Rebecca Cells Not Reportable 05/28/17 04:36 Bite Cells Not Reportable 05/28/17 04:36 Crenated Cell Not Reportable 05/28/17 04:36 Elliptocytes Not Reportable 05/28/17 04:36 Acanthocytes (Spur) Not Reportable 05/28/17 04:36 Rouleaux Not Reportable 05/28/17 04:36 Hemoglobin C Crystals Not Reportable 05/28/17 04:36 Schistocytes Not Reportable 05/28/17 04:36 Malaria parasites Not Reportable 05/28/17 04:36 Yogi Bodies Not Reportable 05/28/17 04:36 Hem Pathologist Commnt No 05/28/17 04:36 PT 17.0 Sec. (12.2-14.9) H 05/25/17 11:29 INR 1.31 (0.87-1.13) H 05/25/17 11:29 POC ABG pH 7.335 (7.35-7.45) L 05/24/17 17:08 POC ABG pCO2 56.8 (35-45) H 05/24/17 17:08 POC ABG pO2 66 (80-105) L 05/24/17 17:08 POC ABG HCO3 30.4 05/24/17 17:08 POC ABG Total CO2 32 05/24/17 17:08 POC ABG O2 Sat 91 05/24/17 17:08 POC ABG Base Excess 5 05/24/17 17:08 FiO2 32 % 05/24/17 17:08 Sodium 137 mmol/L (137-145) 05/28/17 04:36 Potassium 4.3 mmol/L (3.6-5.0) 05/28/17 04:36 Chloride 98.4 mmol/L (98-107) 05/28/17 04:36 Carbon Dioxide 28 mmol/L (22-30) 05/28/17 04:36 Anion Gap 15 mmol/L 05/28/17 04:36 BUN 37 mg/dL (7-17) H 05/28/17 04:36 Creatinine 0.8 mg/dL (0.7-1.2) 05/28/17 04:36 Estimated GFR > 60 ml/min 05/28/17 04:36 BUN/Creatinine Ratio 46.25 % 05/28/17 04:36 Glucose 226 mg/dL (65-100) H 05/28/17 04:36 Calcium 8.1 mg/dL (8.4-10.2) L 05/28/17 04:36 Phosphorus 4.10 mg/dL (2.5-4.5) 05/28/17 04:36 Magnesium 2.50 mg/dL (1.7-2.3) H 05/28/17 04:36 Total Bilirubin 0.60 mg/dL (0.1-1.2) 05/24/17 09:50 AST 17 units/L (5-40) 05/24/17 09:50 ALT 19 units/L (7-56) 05/24/17 09:50 Alkaline Phosphatase 97 units/L (35-129) 05/24/17 09:50 Total Protein 6.8 g/dL (6.3-8.2) 05/24/17 09:50 Albumin 3.1 g/dL (3.9-5) L 05/24/17 09:50 Albumin/Globulin Ratio 0.8 % 05/24/17 09:50 Lipase 32 units/L (13-60) 05/24/17 09:50
--- NOTE | 2017-05-28 15:27 | Event Note ---
Date: 05/28/17 Will perform drain check in pie bakery laborer tomorrow afternoon. If results are amenable, plan to d/c drain.
[2017-05-28] MEDS ORDERED: NACL ONE (15:39)
--- NOTE | 2017-05-28 17:57 | Cat Scan Report ---
FINAL REPORT PROCEDURE: CT ABDOMEN PELVIS W CON TECHNIQUE: Computerized axial tomography of the abdomen and pelvis was performed after the IV injection of iodinated nonionic contrast. HISTORY: Intra-Abdominal Abscess COMPARISON: No prior studies are available for comparison. FINDINGS: Visualized lower thorax: Mild right lower lung atelectasis and effusion.. Liver: Normal size and attenuation. Spleen: Normal size and attenuation. Gallbladder and biliary system: Normal. Pancreas: Normal. Adrenals: Normal. Kidneys: Both kidneys have a normal size. No hydronephrosis. No renal stones or masses.. GI tract: The stomach is normal. A small hiatal hernia is identified. There are multiple loops of small bowel in the lower right abdomen with bowel wall thickening and slight streaking of the mesenteric fat around this region. Findings consistent with enteritis. No complication at this time. The cecum is normal. Colon has a normal caliber. The appendix is not visualized on this study.. Lymph nodes and mesentery: Normal. Vasculature: Moderate atherosclerosis of the aorta and branching vessels.. Bladder: Normal. Reproductive organs: Normal. Peritoneum: No free fluid. Musculoskeletal structures: Moderate degenerative changes of the thoracic and lumbar spine. No acute osseous abnormality. Other: There is mild diffuse soft tissue anasarca.. IMPRESSION: There are a few loops of small bowel in the right lower abdomen with bowel wall thickening and mesenteric fat stranding surrounding this region. Findings are consistent with enteritis. No obstruction is identified. No evidence of an atypical fluid collection or abscess at this time. Atelectasis and effusion right lower lung. Mild diffuse soft tissue anasarca.
[2017-05-28] MEDS: SINGULAIR PO SCH (18:02)
[2017-05-28] MEDS: DIFLUCAN 200 ML IV SCH (21:45)
[2017-05-28] MEDS: LOVENOX SUB-Q SCH (21:46)
[2017-05-29] MEDS: MERREM 1,000 MG in NACL 0.9% 100 ML IV SCH ×3 (04:00→18:44)
[2017-05-29] MEDS: PULMICORT IH SCH ×2 (08:42→18:58)
[2017-05-29] MEDS: BROVANA NEBU IH SCH ×2 (08:42→18:57)
[2017-05-29] MEDS: COZAAR PO SCH (10:27)
[2017-05-29] MEDS: VITAMIN B-12 PO SCH (10:27)
[2017-05-29 10:28] VITALS: BP 145/70
--- NOTE | 2017-05-29 11:26 | Discharge Summary ---
Providers - Providers Date of Admission: 05/24/17 13:42 Date of discharge: 05/29/17 Attending physician: RADHA MAYEN 05/24/17 17:38 Consult to Physician [CONS] Routine Consulting Provider: XUAN RAMIREZ Reason For Exam: Intra-abdominal abscess Place consult to:: JAMES Notified:: JAMES Phone number called:: [phone] Was contact made?: Yes If yes, spoke with:: Time called:: 18:10 05/25/17 16:28 Physical Therapy Evaluation and Treat [CONS] Routine Comment: Reason For Exam: weakness 05/26/17 07:30 Consult to Wound/ET Nurse [CONS] Routine Reason For Exam: wound eval 05/28/17 14:13 Midline [Consult to PICC Line RN] [CONS] Routine Reason For Exam: Planned OPAT/ Home IV Antibiotics Type Line:: Midline Primary care physician: JANAY BOWSER Hospitalization Condition: Stable Hospital course: 76-year-old woman with past medical history of hypertension and asthma and obesity who presented complaining of abdominal pain to right lower quadrants. Discharge diagnosis and management: Intra-abdominal abscess with sepsis - due to Ruptured Appendicitis/Perforated viscus - s/p CT guided placement of an intra-abdominal abscess drainage catheter on - ID was consulted - repeat CT showed Near complete resolution of appendiceal abscess, status post appendiceal rupture but no signs of peritonitis or additional abscess formation. - will complete iv abx for total 2 weeks Obesity (BMI 35.0-39.9 without comorbidity) - balanced diet, increased physical activity Mild intermittent Asthma - Not currently in exacerbation, stable HTN (hypertension) - Continue medications Disposition: [id number]/[place]-06 HOME [facility] Time spent for discharge: 35 minutes Core Measure Documentation - Palliative Care Palliative Care/ Comfort Measures: Not Applicable - Core Measures Any of the following diagnoses?: none Exam - Constitutional Vitals: Temp Pulse Resp BP Pulse Ox 97.5 F L 55 L 20 145/70 99 05/29/17 10:00 05/29/17 10:27 05/29/17 10:00 05/29/17 10:27 05/29/17 08:57 Plan Activity: advance as tolerated Weight Bearing Status: Non-Weight Bearing Diet: low fat, low salt Follow up with: JANAY BOWSER MD [Primary Care Provider] - 7 Days Prescriptions: Ertapenem (Nf) [[facility]] 1 gm IV QDAY 14 Days
--- NOTE | 2017-05-29 15:48 | Progress Note ---
Subjective Patient Reports: Positive: feels better, flatus, bowel movement Narrative: stable ambulatory ,tolerating PO well indicated to family the need for CT scan of the abd , talked ti hi daughter an MD . Objective Vital Signs - 12hr 05/29/17 05/29/17 05/29/17 08:43 08:56 08:57 Temperature Pulse Rate Pulse Rate [ 55 L 59 L Anterior Bilateral Throughout] Pulse Rate [ From Monitor] Respiratory Rate Respiratory 16 16 Rate [Anterior Bilateral Throughout] Blood Pressure Blood Pressure [Left Arm] O2 Sat by Pulse 99 Oximetry 05/29/17 05/29/17 10:00 10:27 Temperature 97.5 F L Pulse Rate 55 L Pulse Rate [ Anterior Bilateral Throughout] Pulse Rate [ 55 L From Monitor] Respiratory 20 Rate Respiratory Rate [Anterior Bilateral Throughout] Blood Pressure 145/70 Blood Pressure 145/70 [Left Arm] O2 Sat by Pulse Oximetry - Labs 05/28/17 04:36 05/28/17 04:36
--- NOTE | 2017-05-29 17:17 | Progress Note ---
Assessment and Plan - Patient Problems (1) Intra-abdominal abscess Current Visit: Yes Status: Acute Plan to address problem: 1. For discharge to home with Ertapenem through June 12, 2017. 2. Patient will follow-up with me on an outpatient basis before course is completed. 3. Weekly CBC with diff ad CMP with results faxed to me at [phone]. 4. Remove PICC/ midline after last dose of Ertapenem. 5. Disposition plan with discussed for cumulative 30 minutes with team members/ family. Subjective Date of service: 05/29/17 Principal diagnosis: Intra-Abdominal Abscess Interval history: For discharge to home today. Case has been discussed with the primary MD and case management. Objective - Constitutional Vitals: Vital Signs Temp Pulse Resp BP Pulse Ox 97.5 F L 55 L 20 145/70 99 05/29/17 10:00 05/29/17 10:27 05/29/17 10:00 05/29/17 10:27 05/29/17 08:57 Temperature -Last 24 Hours Temperature 97.5 F Temperature 97.2 F General appearance: Present: no acute distress, well-nourished - EENT Eyes: no scleral icterus - Neck Neck: supple - Respiratory Respiratory effort: normal Respiratory: bilateral: CTA - Cardiovascular Rhythm: regular Heart Sounds: Present: S1 & S2 Extremities: No edema - Gastrointestinal General gastrointestinal: Present: soft, non-distended, other (prior drain site at RLQ without evidence of drainage) - Integumentary Integumentary: clear, no jaundice - Psychiatric Psychiatric: appropriate mood/affect - Additional findings Additional findings: midline at left arm without evidence of inflammation - Labs CBC & Chem 7: 05/28/17 04:36 05/28/17 04:36 Labs: Microbiology 05/25/17 15:00 Abdomen Surgical Culture - Final Escherichia Coli Escherichia Coli#2 05/27/17 12:15 Stool C. difficile DNA Amplification - Final - Imaging and cardiology CT scan - abdomen: report reviewed (evidence of enteritis with no fluid collection or abscess seen) CT scan - pelvis: report reviewed
[2017-05-29] MEDS: SINGULAIR PO SCH (18:43)
== END 2017-05-29 20:15 | disposition home health service (06) | DRG 871 ==
LOC: ED 09:34 → CC2 13:42
PROVIDERS: ADMIT Internal Medicine; ATTEND Internal Medicine
PROC: 0W9F30Z Drainage of Abdominal Wall with Drainage Device, Percutaneous Approach (ICD-10-PCS; principal; 2017-05-24)
PROC: 4A033R1 Measurement of Arterial Saturation, Peripheral, Percutaneous Approach (ICD-10-PCS; 2017-05-24)
DX: A41.50 Gram-negative sepsis, unspecified (principal); K65.1 Peritoneal abscess; K65.9 Peritonitis, unspecified; I10 Essential (primary) hypertension; K36 Other appendicitis; E66.9 Obesity, unspecified; Z68.35 Body mass index [BMI] 35.0-35.9, adult; Z71.3 Dietary counseling and surveillance; Z82.49 Family history of ischemic heart disease and other diseases of the circulatory system; Z98.49 Cataract extraction status, unspecified eye
CPT/HCPCS: 10160; 36415; 36600; 71010; 71020; 74000; 74177; 74250; 77012; 80048; 80053; 80202; 82803; 83690; 83735; 84100; 85007; 85025; 85610; 87076; 87116; 87186; 87493; 94640; 94760; 99285; C1769; G8978-GP; G8979-GP; J1450; J1650; J2060; J2185; J2250; J2270; J2543; J2930; J3010; J3370; J7030; J7040; J7050; Q9963; Q9967